=== PATIENT | female | born 1980 | race Caucasian/White ===

== ENCOUNTER 2016-09-22 16:13 | Emergency (ER) | payer OTHER ==
[2016-09-22 16:26] VITALS: BP 115/62; PULSE 78; RESP 18; TEMP 98; O2SAT 97
[2016-09-22] MEDS ORDERED: KETAMINE 100 MG/10 ML SYR IVP ONE (17:34)
[2016-09-22] MEDS ORDERED: MIDAZOLAM 2 MG/2 ML VIAL IVP ONE (17:35)
--- NOTE | 2016-09-22 17:38 | UCPHY ---
H & P Time Seen by Provider: 09/22/16 16:26 Patient Type: Established HPI/ROS: This patient complains of right knee pain and a feeling that it is locked. Symptoms occurred earlier today. She explains that she was on her knees in the kitchen and then when she stood back up she could not straighten her leg. She describes meeting resistance with attempts to extend the knee and also pain. She describes the pain as mild baseline but moderate to severe if she tries to force extension of the right knee. She has never had this condition before. ROS: No recent fevers chills or other constitutional symptoms. She reports no numbness or tingling to the affected knee. Her last meal was 2:00 p.m. today. 5 point ROS is otherwise negative. Past Medical/Surgical History: She reports long history of crepitance to the right knee describing crunching sound when she walks up and down stairs Smoking Status: Never smoked Physical Exam: General Appearance: Alert, no distress. Eyes: Pupils equal and round no pallor or injection. ENT, Mouth: Mucous membranes moist. Mallampati 1 airway Respiratory: There are no retractions, lungs are clear to auscultation. Cardiovascular: Regular rate and rhythm. Gastrointestinal: Soft nontender Neurological: Alert. No deficits in the affected lower extremity Skin: Warm and dry, no rashes. Extremities are symmetrical, full range of motion except for right knee Right knee: Patient has inability to extend her right knee fully. She has a flexed approximately 30 of flexion. When she relaxes her muscles I am unable to passively extend her knee and seems to be a combination of pain and potential mechanical resistance. She has no patellar anxiety. No posterior knee, lateral knee tenderness. She has mild anteromedial knee tenderness. No significant swelling. No knee effusion. Kalani's is negative for laxity. Varus and valgus stress without laxity. She has mild discomfort with valgus stress. Psychiatric: Mood and affect are normal DIFFERENTIAL DIAGNOSIS: After history and physical exam differential diagnosis was considered for meniscal injury with locked knee, bony abnormality, ligamentous injury, Constitutional: Initial Vital Signs Temperature (C) 36.6 C 09/22/16 16:24 Heart Rate 78 09/22/16 16:24 Respiratory Rate 18 09/22/16 16:24 Blood Pressure 115/62 09/22/16 16:24 O2 Sat (%) 97 02/22/17 16:24 O2 Delivery Mode Room Air Allergies/Adverse Reactions: No Known Allergies Allergy (Unverified 09/26/15 08:13) Home Medications: Medication Instructions Recorded Propranolol HCl [Inderal 20mg (*)] 20 mg PO ONCE PRN #12 tab 09/26/15 MDM/Departure - [facility] Procedures: I tried on locking the patient's knee without sedation analgesia but she does not tolerate this and she requests to proceed with procedural sedation I obtained a written consent for procedural sedation Procedure: Procedural sedation. A pre-sedation evaluation was completed on the patient at 1730. Patient is an appropriate candidate for procedural sedation. The risks of the sedation were discussed with the patient. [A time out was completed.] The patient was sedated with ketamine 1 milligram/kilogram IV. 1 mg of Versed [The patient was monitored with continuous pulse oximetry, traffic monitor specialist and end tidal CO2 [ There were no complications and no significant hypoxemia. I remained at the bedside for the sedation. The total time I spent in the procedural sedation was approximately 30 minutes. The patient had mild anxiety with emergence is treated with 0.5 mg of Ativan IV. 2nd procedure: Locked knee after verbal consent and procedural sedation with relaxation nose unable to extend the patient's knee along with internal and external rotation of the lower extremity at the foot. I do not appreciate any significant crepitance with the procedure. Patient tolerated this well. There were no complications. She is placed in the appropriate brace. ED Course/Re-evaluation: I counseled patient and her regarding meniscal injuries. She will follow up with the orthopedic doctor on-call-Dr. Watkins - Depart Disposition: Home, Routine, Self-Care Clinical Impression: Locking of right knee Condition: Good Instructions: Knee Pain (ED) Additional Instructions: Diagnosis: Locked knee We performed moderate sedation or procedural sedation and with muscle relaxation were able to extend her knee without resistance. We then placed 2 in a neoprene brace. Plan: Ibuprofen and Tylenol for discomfort as needed Cane or crutches for discomfort if needed for walking. Call Dr. Watkins orthopedic surgeon for follow-up for further evaluation. This condition is usually caused by meniscal injury with a cartilage flipped up within the knee joint locking the knee. Referrals: Maxine Mackay, [Primary Care Provider] - As per Instructions West Watkins MD [Medical Doctor] - As per Instructions - PQRS PQRS Measurement: NA
[2016-09-22] MEDS ORDERED: LORazepam 2 MG/ML INJ ONE (18:29)
[2016-09-22] MEDS ORDERED: LORazepam 2 MG/ML INJ IVP ONE (18:45)
== END 2016-09-22 20:15 | disposition home or self-care (01) ==
LOC: CED 16:13
DX: M23.91 Unspecified internal derangement of right knee (principal)
CPT/HCPCS: 73562-PO; 96374-PO; 96375-PO; G0463-PO; J2250; L1810

== ENCOUNTER → 2017-07-26 | Outpatient (CLI) | payer OTHER | LOC: CIMAGING 13:39 | PROVIDERS: ATTEND Family Medicine | DX: M85.872 Other specified disorders of bone density and structure, left ankle and foot (principal) | CPT/HCPCS: 73630-PO ==